=== PATIENT | female | born 1990 | race Caucasian/White ===

== ENCOUNTER 2024-05-15 16:05 | Inpatient (IN) | payer OTHER ==
[~2024-05-15] VITALS: Ht 160 cm; Wt 100.6 kg
[2024-05-15] MEDS ORDERED: ASPI81CH33 PO (16:22)
[2024-05-15] MEDS ORDERED: HOME MED LIST COMPLETE! XX SCH (16:25)
[2024-05-15 16:27] VITALS: BP 137/88
[2024-05-15] MEDS ORDERED: TRANEXAMIC ACID INJection 1,000 MG in NS 100 ML IV PRN (16:55)
[2024-05-15] MEDS ORDERED: OXYTOCIN INJ 10UNITS/ML 1ML VIAL IM PRN (16:55)
[2024-05-15] MEDS ORDERED: CARBOPROST TROMETHAMINE 250 MCG/ML AMP IM PRN (16:55)
[2024-05-15] MEDS ORDERED: METHYLERGONOVINE MALEATE 0.2MG/ML 1ML VIAL IM PRN (16:55)
[2024-05-15] MEDS ORDERED: LIDOCAINE 1% MDV 20ML VIAL INFIL PRN (16:55)
[2024-05-15] MEDS: LR 1,000 ML IV SCH ×2 (16:55)
[2024-05-15] MEDS ORDERED: OXYTOCIN DRIP 30 UNITS in IV 1 EA IV PRN (16:55)
[2024-05-15] MEDS ORDERED: OXYTOCIN INJ 10UNITS/ML 1ML VIAL IV PRN (16:55)
[2024-05-15 18:03] LABS: HEMATOCRIT 36.1 % (36.0-47.0); HEMOGLOBIN 12.1 g/dl (12.0-15.5); MEAN CORPUSCULAR HEMOGLOBIN 27.9 pg (27.0-33.0); MEAN CORPUSCULAR HGB CONC 33.5 g/dl (32.0-36.5); MEAN CORPUSCULAR VOLUME 83.2 fl (80.0-96.0); PLATELET COUNT, AUTOMATED 311 10^3/uL (150-450); RED BLOOD COUNT 4.34 10^6/uL (4.00-5.40); WHITE BLOOD COUNT 12.4 10^3/uL (4.0-10.0)
[2024-05-15] MEDS: miSOPROStol 50MCG 1/2 TABLET PO PRN (18:24)
[2024-05-15] MEDS ORDERED: INSULIN IV RATE CHANGE DOCUMENTATION ML/HR XX SCH (18:55)
[2024-05-15 19:03] LABS: HIV 1&2 SCREEN NEGATIVE (NEGATIVE)
[2024-05-15 19:10] LABS: HEPATITIS C VIRUS ABY INDEX 0.02 INDEX (<0.8)
[2024-05-15 20:19] VITALS: BP 125/78
[2024-05-15] MEDS: NS (Normal Saline) 0.9% 1,000 ML IV SCH (21:03)
[2024-05-15] MEDS: INSULIN REGULAR IN 0.9 % NACL 100 UNIT in IV 1 EA IV SCH (21:03)
[2024-05-15 21:12] VITALS: BP 139/72
[2024-05-15] MEDS ORDERED: PROMETHAZINE 25MG/ML 1ML VIAL IM PRN (21:30)
[2024-05-15 23:22] VITALS: BP 131/67
[2024-05-16] VITALS (49 sets, daily range): BP systolic 105–156; BP diastolic 51–100; O2SAT 97–98
[2024-05-16] MEDS: PROMETHAZINE 25MG/ML 1ML VIAL IV PRN (00:29)
[2024-05-16] MEDS: BUTORPHANOL 2 MG/ML 1ML VIAL IV PRN (00:29)
[2024-05-16] MEDS ORDERED: EPIDURAL/PCA KEYS XX PRN (03:50)
[2024-05-16] MEDS ORDERED: NALOXONE INJ 0.4MG/1ML VIAL IV PRN (03:50)
[2024-05-16] MEDS ORDERED: diphenhydrAMINE 50MG/ML VIAL IV PRN (03:50)
[2024-05-16] MEDS ORDERED: ONDANSETRON 4MG 2ML VIAL IV PRN (03:50)
[2024-05-16] MEDS: LACTATED RINGER'S 1000 ML IV STA (03:56)
[2024-05-16] MEDS: FENTANYL/ROPIVACAINE/NACL BAG 100 ML EPIDURAL SCH (03:58)
[2024-05-16] MEDS: ePHEDrine SULFATE 25 MG/5 ML(5MG/ML) SYRINGE IVP PRN (05:51)
[2024-05-16] MEDS: LR 500 ML IV PRN (05:51)
[2024-05-16] MEDS: OXYTOCIN DRIP 30 UNITS in IV 1 EA IV SCH (07:02)
[2024-05-16] MEDS: DOCUSATE SODIUM 100MG CAPSULE PO SCH (09:00)
[2024-05-16] MEDS: PRENATAL VITAMINS CHEWABLE TABLET PO SCH (09:00)
[2024-05-16 10:34] LABS: CORD GAS ABE A -6.3; CORD GAS HCO3 A 20.1 MMOL/L; CORD GAS PCO2 A 43.1 mmHg; CORD GAS PH A 7.287 UNITS; CORD GAS PO2 A 55.2 mmHg; CORD GAS SBC A 19.3 MMOL/L; CORD GAS TCO2 A 21.4 MMOL/L
[2024-05-16 10:37] LABS: CORD GAS ABE V -4.2; CORD GAS HCO3 V 20.8 MMOL/L; CORD GAS O2 SAT V 88.9 %; CORD GAS PH V 7.356 UNITS; CORD GAS PO2 V 43.7 mmHg; CORD GAS SBC V 20.9 MMOL/L
[2024-05-16] MEDS ORDERED: RHOGAM 300MCG (1500IU) INJ IM SCH (10:50)
[2024-05-16] MEDS ORDERED: ANUSOL HC CREAM 30GM TOP PRN (10:50)
[2024-05-16] MEDS ORDERED: MOM 30ML SUSPENSION UDC PO PRN (10:50)
[2024-05-16] MEDS: OXYTOCIN DRIP 30 UNITS in IV 1 EA IV PRN (11:20)
[2024-05-16] MEDS: IBUPROFEN 800 MG TAB PO PRN (16:04)
[2024-05-16] MEDS: DIBUCAINE 1% OINTMENT 30GM TOP PRN (16:05)
[2024-05-17 06:00] VITALS: BP 137/70; O2SAT 98
[2024-05-17 18:00] VITALS: BP 129/67; O2SAT 98
[2024-05-18 06:00] VITALS: BP 116/66; O2SAT 98
[2024-05-18] MEDS: ACETAMINOPHEN 500 MG TAB PO PRN (06:24)
[2024-05-18] MEDS: MEASLES,MUMPS,RUBELLA VACCINE INJ (MMR-II) SC.IMMUN ONE (07:21)
== END 2024-05-18 14:25 | disposition home or self-care (01) | DRG 807 ==
LOC: M LDO 16:05 → M LDI 17:09 → M OBS 05-16 12:34
PROVIDERS: ADMIT Obstetrics & Gynecology; ATTEND Obstetrics & Gynecology
PROC: 10E0XZZ Delivery of Products of Conception, External Approach (ICD-10-PCS; principal; 2024-05-15)
PROC: 0HQ9XZZ Repair Perineum Skin, External Approach (ICD-10-PCS; 2024-05-15)
PROC: 3E0P7GC Introduction of Other Therapeutic Substance into Female Reproductive, Via Natural or Artificial Opening (ICD-10-PCS; 2024-05-15)
DX: O42.02 Full-term premature rupture of membranes, onset of labor within 24 hours of rupture (principal); Z37.0 Single live birth; Z3A.37 37 weeks gestation of pregnancy; O70.0 First degree perineal laceration during delivery